=== PATIENT | female | born 1995 | race Caucasian/White ===

== ENCOUNTER → 2017-10-26 | Outpatient (CLI) | payer OTHER | LOC: HPND 11:56 | PROVIDERS: ATTEND Obstetrics & Gynecology | DX: Z36.3 Encounter for antenatal screening for malformations (principal) | CPT/HCPCS: 76805 ==

== ENCOUNTER 2018-03-12 08:21 | Inpatient (IN) ==
[2018-03-12] MEDS ORDERED: Ibuprofen 400 MG Tablet PO PRN (08:43)
[2018-03-12] MEDS ORDERED: Zolpidem Tartrate 5 MG Tablet PO PRN (08:43)
[2018-03-12] MEDS ORDERED: Naloxone Inj 0.4 MG/ML Vial IV.PUSH PRN (08:43)
[2018-03-12] MEDS ORDERED: Oxytocin 30 Units/500ml Premix 30 UNITS/500 ML BAG IV.CONT PRN (08:43)
[2018-03-12 09:20] LABS: Baso % (Auto) 0.2 % (0.0-2.0); Eos # (Auto) 0.1 th/mm3 (0.0-0.4); Eos % (Auto) 0.6 % (0.0-4.0); Hematocrit 38.4 % (35.0-46.0); Hemoglobin 13.1 gm/dL (11.6-15.3); Lymph # (Auto) 1.9 th/mm3 (1.0-4.8); Mean Corpuscular HGB Conc 34.2 % (32.0-36.0); Mean Corpuscular Hemoglobin 29.9 pg (27.0-34.0); Mean Corpuscular Volume 87.5 fL (80.0-100.0); Mean Platelet Volume 9.3 fL (7.0-11.0); Mono % (Auto) 7.5 % (0.0-8.0); Neut # (Auto) 10.7 th/mm3 (1.8-7.7); Neut % (Auto) 77.7 % (16.0-70.0); Platelet Count 191 th/mm3 (150-450); Red Blood Count 4.39 mil/mm3 (4.00-5.30); Red Cell Distribution Width 13.3 % (11.6-17.2); White Blood Count 13.8 th/mm3 (4.0-11.0)
--- NOTE | 2018-03-12 09:31 | P.OBDELI ---
Weeks Gestation: 38 Patient Started Active Labor: Yes Medical Induction of Labor: No Artificial Rupture of Membrane: No Anesthesia: None Episiotomy: none Vaginal Delivery: Normal Presentation: Occiput anterior Nuchal Cord: None Delayed Cord Clamping (45 sec): Yes Placenta: Manual removal, Uterus explored + Laceration: None Infant: Male
--- NOTE | 2018-03-12 09:38 | P.HPOB ---
History of Present Illness Primary Care Physician: No Primary Care Physician Chief Complaint: Labor History of Present Illness: 22-year-old at 38 weeks seen earlier today complaining of ruptured membranes. Return several hours later complaining of pelvic pressure urge to push. Weeks Gestation:: 38 Para: 1 : 2 - Inpatient Certification I certify that the inpatient services were ordered in accordance with Medicare regulations governing the order. This includes certification that hospital inpatient services are reasonable and necessary and in the case of services not specified as inpatient-only under 42 CFR 419.22(n), that they are appropriately provided as inpatient services in accordance to with the 2-midnight benchmark under 43 CFR 412.3(e) Estimated Total Length of Stay (Days): 2 Plans for Post Hospital Care: Home [facility] - History History Provided By: Patient - Medical History Medical History: Medical History (Last Updated 03/12/18 @ 01:51 by Shari Stewart MD) Asthma Depression - Tobacco History Smoking Status: Current every day smoker Cigarettes Per Day: 10 - Substance Use History Substance History: No History of Abuse - Travel History History of Recent Travel: No Recent Travel in the [place] Within the Last 8 Weeks: No Recent Travel Out of the Country Within the Last 8 Weeks: No Medications and Allergies Active Medications: Active Medications Acetaminophen (Tylenol) 650 mg PO Q4H PRN PRN Reason: PAIN SCALE 1 TO 2 Al Hydroxide/Mg Hydroxide (Milk Of Magnesia Liq) 30 ml PO Q12H PRN PRN Reason: Mild Constipation Benzocaine (Americaine 20% Top [place]) 1 spray TOPICAL Q4H PRN PRN Reason: For Perineum Discomfort Diphtheria/Pertussis/Tetanus Vacc (Boostrix Vaccine Inj) 0.5 ml IM .ONCE ONE Stop: 03/12/18 16:01 Oxytocin (Pitocin 30 Units/Ns 500 Ml Premix) 30 units in 500 mls @ 100 mls/hr IV.CONT UNSCH PRN PRN Reason: Heavy bleeding Ibuprofen (Motrin) 800 mg PO Q8H PRN PRN Reason: For Cramping Measles/Mumps/Rubella Vaccine Live (M-M-R Ii Vaccine Inj) 0.5 ml SQ .ONCE ONE Stop: 03/12/18 16:01 Naloxone HCl (Narcan Inj) 0.1 mg IV.PUSH Q2M PRN PRN Reason: for opiate reversal Ondansetron HCl (Zofran Odt) 4 mg PO Q6H PRN PRN Reason: NAUSEA OR VOMITING Senna/Docusate Sodium (Paula-Colace) 1 tab PO BID RACHELL Sennosides (Senokot) 17.2 mg PO Q12H PRN PRN Reason: Moderate Constipation Sodium Chloride (Ns Flush) 2 ml IV.FLUSH BID RACHELL Sodium Chloride (Ns Flush) 2 ml IV.FLUSH UNSCH PRN PRN Reason: FLUSH AFTER USING IV ACCESS Witch Janis/Glycerin (Tucks Pads) 1 applicatio RECTAL QID PRN PRN Reason: HEMORRHOIDS Zolpidem Tartrate (Ambien) 5 mg PO HS PRN PRN Reason: SLEEP Allergies Allergy/AdvReac Type Severity Reaction Status Date / Time No Known Allergies Allergy Verified 03/12/18 08:54 Home Medications Medication Instructions Recorded Confirmed Type No Known Home Medications 03/12/18 03/12/18 History Exam Vital signs: Vital Signs 03/12/18 09:04 Pulse Rate 74 Blood Pressure 110/79 Intake & Output 03/11/18 03/12/18 03/12/18 18:59 06:59 18:59 Weight 88.904 kg Other: Weight On Admission 88.904 kg Narrative: GENERAL: Well-nourished, well-developed patient. SKIN: Warm and dry. HEAD: Normocephalic and atraumatic. EYES: No scleral icterus. No injection or drainage. ENT: No nasal drainage noted. Mucous membranes pink. Airway patent. NECK: Supple, trachea midline. No JVD. CARDIOVASCULAR: Regular rate and rhythm without murmurs, gallops, or rubs. RESPIRATORY: Breath sounds equal bilaterally. No accessory muscle use. BREASTS: Bilateral exam showed no masses , no retractions, no nipple discharge. ABDOMEN/GI: Abdomen soft, non-tender, bowel sounds present, no rebound, no guarding Gravid to 38 weeks size Fundal Height: Consistent with gestational age GENITOURINARY: External Genitalia: intact and normal in appearance BUS glands: Unremarkable Cervix: Complete Dilatation: Complete Effacement: 100 Station: +2 +3 Presentation: Vertex Membranes: Ruptured Uterine Contractions: Palpates regular FHT's: Category: heart tones present EXTREMITIES: No cyanosis or edema. BACK: Nontender without obvious deformity. No CVA tenderness. NEUROLOGICAL: Awake and alert. Motor and sensory grossly within normal limits. Normal speech. Results - Labs CBC & Chem 7: 03/12/18 09:04 Labs: Laboratory Results - last 24 hr 03/12/18 09:04 WBC 13.8 H RBC 4.39 Hgb 13.1 Hct 38.4 MCV 87.5 MCH 29.9 MCHC 34.2 RDW 13.3 Plt Count 191 MPV 9.3 Neut % (Auto) 77.7 H Lymph % (Auto) 14.0 [place] % (Auto) 7.5 Eos % (Auto) 0.6 Baso % (Auto) 0.2 Neut # (Auto) 10.7 H Lymph # (Auto) 1.9 [place] # (Auto) 1.0 H Eos # (Auto) 0.1 Baso # (Auto) 0.0 WBC Differential . Differential Comment Auto diff final Caprini VTE Risk Assessment Caprini VTE Risk Assessment: No/Low Risk (score <= 1) Caprini Risk Assessment Model: Point Value = 1 Point Value = 2 Point Value = 3 Point Value = 5 Age 41-60 Minor surgery BMI > 25 kg/m2 Swollen legs Varicose veins or History of unexplained or recurrent spontaneous Oral contraceptives or hormone replacement Sepsis (< 1 month) Serious lung disease, including pneumonia (< 1 month) Abnormal pulmonary function Acute myocardial infarction Congestive heart failure (< 1 month) History of inflammatory bowel disease Medical patient at bed rest Age 61-74 Arthroscopic surgery Major open surgery (> 45 min) Laparoscopic surgery (> 45 min) Malignancy Confined to bed (> 72 hours) Immobilizing plaster cast Central venous access Age >= 75 History of VTE Family history of VTE Factor V Leiden Prothrombin [id number] Lupus anticoagulant Anticardiolipin antibodies Elevated serum homocysteine Heparin-induced thrombocytopenia Other congenital or acquired thrombophilia Stroke (< 1 month) Elective arthroplasty Hip, pelvis, or leg fracture Acute spinal cord injury (< 1 month) Prophylaxis Regimen: Total Risk Factor Score Risk Level Prophylaxis Regimen 0-1 Low Early ambulation 2 Moderate Order ONE of the following: *Sequential Compression Device (SCD) *Heparin 5000 units SQ BID 3-4 Higher Order ONE of the following medications: *Heparin 5000 units SQ TID *Enoxaparin/Lovenox 40 mg SQ daily (WT < 150 kg, CrCl > 30 mL/min) *Enoxaparin/Lovenox 30 mg SQ daily (WT < 150 kg, CrCl > 10-29 mL/min) *Enoxaparin/Lovenox 30 mg SQ BID (WT < 150 kg, CrCl > 30 mL/min) AND/OR *Sequential Compression Device (SCD) 5 or more Highest Order ONE of the following medications: *Heparin 5000 units SQ TID (Preferred with Epidurals) *Enoxaparin/Lovenox 40 mg SQ daily (WT < 150 kg, CrCl > 30 mL/min) *Enoxaparin/Lovenox 30 mg SQ daily (WT < 150 kg, CrCl > 10-29 mL/min) *Enoxaparin/Lovenox 30 mg SQ BID (WT < 150 kg, CrCl > 30 mL/min) AND *Sequential Compression Device (SCD) Assessment and Plan - Diagnosis (1) Precipitous delivery Code(s): O62.3 - Precipitate labor Status: Acute (2) Group beta Strep positive Code(s): B95.1 - Streptococcus, group B, as the cause of diseases classified elsewhere Status: Acute (3) 38 weeks gestation of Code(s): Z3A.38 - 38 weeks gestation of Status: Acute
[2018-03-12] MEDS: Acetaminophen 325 MG Tablet PO PRN ×3 (12:33→21:17)
[2018-03-12 13:22] LABS: Bilirubin,Urine Negative (Negative); Clarity,Urine Hazy (Clear); Color,Urine Yellow (Yellw/Straw); Glucose,Urine (UA) Negative (Negative); Leukocyte Esterase,Urine Trace (Negative); Mucus,Urine Few /lpf (Occasional); Nitrite,Urine Negative (Negative)
[2018-03-12 13:23] LABS: Amphetamine Urine With Conf Neg (Neg); Benzodiazepine Urine With Conf Neg (Neg)
[2018-03-12] MEDS: Senna/Docusate Sodium 8.6/50 MG Tablet PO SCH ×2 (14:06→21:18)
[2018-03-12] MEDS ORDERED: Diphtheria/Tetanus/Pertussis Vaccine Inj 0.5 ML Syringe IM ONE (16:00)
[2018-03-12] MEDS ORDERED: Measles/Mumps/Rubella Vaccine Inj 0.5 ML Vial SQ ONE (16:00)
[2018-03-12] MEDS: Witch Hazel 50%/Glyderin 12.5% 40 Pad Jar RECTAL PRN (21:18)
[2018-03-12] MEDS: Benzocaine 20% Top Spray 60 ML Can TOPICAL PRN (21:18)
--- NOTE | 2018-03-13 08:41 | P.PNOB ---
Subjective Post day: 1 Interval history: day # 1 after precipitous delivery with manual removal of the placenta. Afebrile with stable vitals overnight. Decreased lochia. Denies dysuria. No breast pain. Appetite good. No nausea or vomiting. Ambulating well. Denies calf pain or shortness of breath. Otherwise, she is doing well this morning and has no other complaints. Objective Vital Signs/I&O: Vital Signs 03/12/18 09:04 03/12/18 10:00 03/12/18 20:55 Temperature 98.6 F 97.8 F Pulse Rate 74 64 86 Respiratory Rate 14 18 Blood Pressure 110/79 111/71 117/67 03/13/18 07:30 Temperature 98.0 F Pulse Rate 71 Respiratory Rate 20 Blood Pressure 120/70 Intake & Output 03/12/18 03/13/18 03/13/18 18:59 06:59 18:59 Weight 88.904 kg Other: Weight On Admission 88.904 kg Result Diagrams: 03/12/18 09:04 Objective Remarks: General: Alert, well appearing, in no acute distress Skin: Warm and dry HEENT: Atraumatic. Moist mucus membranes Cardiac: Regular rate and rhythm without murmur Pulmonary: No increased work of breathing. Clear to auscultation bilaterally with good air movement. Abdominal: Non-tender. Uterus firm, non-tender and below the umbilicus Extremities: 2+ pedal pulses, no edema, no calf tenderness Medications and IVs: Active Medications Acetaminophen (Tylenol) 650 mg PO Q4H PRN PRN Reason: PAIN SCALE 1 TO 2 Last Admin: 03/12/18 21:17 Dose: 650 mg Al Hydroxide/Mg Hydroxide (Milk Of Magnesia Liq) 30 ml PO Q12H PRN PRN Reason: Mild Constipation Benzocaine (Americaine 20% Top [place]) 1 spray TOPICAL Q4H PRN PRN Reason: For Perineum Discomfort Last Admin: 03/12/18 21:18 Dose: 1 spray Oxytocin (Pitocin 30 Units/Ns 500 Ml Premix) 30 units in 500 mls @ 100 mls/hr IV.CONT UNSCH PRN PRN Reason: Heavy bleeding Ibuprofen (Motrin) 800 mg PO Q8H PRN PRN Reason: For Cramping Naloxone HCl (Narcan Inj) 0.1 mg IV.PUSH Q2M PRN PRN Reason: for opiate reversal Ondansetron HCl (Zofran Odt) 4 mg PO Q6H PRN PRN Reason: NAUSEA OR VOMITING Senna/Docusate Sodium (Paula-Colace) 1 tab PO BID [facility] Last Admin: 03/12/18 21:18 Dose: 1 tab Sennosides (Senokot) 17.2 mg PO Q12H PRN PRN Reason: Moderate Constipation Sodium Chloride (Ns Flush) 2 ml IV.FLUSH BID [facility] Last Admin: 03/12/18 22:36 Dose: Not Given Sodium Chloride (Ns Flush) 2 ml IV.FLUSH UNSCH PRN PRN Reason: FLUSH AFTER USING IV ACCESS Witch Janis/Glycerin (Tucks Pads) 1 applicatio RECTAL QID PRN PRN Reason: HEMORRHOIDS Last Admin: 03/12/18 21:18 Dose: 1 applicatio Zolpidem Tartrate (Ambien) 5 mg PO HS PRN PRN Reason: SLEEP Assessment and Plan - Plan 22 y/o female who is PPD# 1 s/p vaginal delivery (precipitous and manual removal of placenta) -Continue routine care. -Motrin /APAP as needed for pain. -Encouraged OOB. Advised pelvic rest for 6 wks. - control: patient expresses desire for tubal -Anticipate DC home tomorrow
[2018-03-13] MEDS: Senna/Docusate Sodium 8.6/50 MG Tablet PO SCH ×2 (09:00→21:45)
[2018-03-13 21:41] VITALS: RESP 18
[2018-03-13] MEDS: Benzocaine 20% Top Spray 60 ML Can TOPICAL PRN (21:45)
[2018-03-13] MEDS: Witch Hazel 50%/Glyderin 12.5% 40 Pad Jar RECTAL PRN (21:46)
[2018-03-13] MEDS: Acetaminophen 325 MG Tablet PO PRN (21:46)
[2018-03-14] MEDS: Acetaminophen 325 MG Tablet PO PRN ×2 (05:38→09:21)
[2018-03-14 08:17] VITALS: BP 116/67; PULSE 72; TEMP 97.9
--- NOTE | 2018-03-14 08:27 | P.PNOB ---
Subjective Post day: 2 Interval history: day #2 after precipitous delivery with manual removal of the placenta. Afebrile with stable vitals overnight. Decreased lochia. Denies dysuria. No breast pain. Eating and drinking well. No nausea or vomiting. Ambulating well. Denies calf pain or shortness of breath. She is doing well this morning and has no other complaints. Objective Vital Signs/I&O: Vital Signs 03/13/18 20:00 03/14/18 08:00 Temperature 98.5 F 97.9 F Pulse Rate 83 72 Respiratory Rate 18 18 Blood Pressure 141/80 H 116/67 Result Diagrams: 03/12/18 09:04 Objective Remarks: General: Alert, well appearing, in no acute distress Skin: Warm and dry HEENT: Atraumatic. Moist mucus membranes Cardiac: Regular rate and rhythm without murmur Pulmonary: No increased work of breathing. Clear to auscultation bilaterally with good air movement. Abdominal: Non-tender. Uterus firm, non-tender and below the umbilicus Extremities: 2+ pedal pulses, no edema, no calf tenderness Medications and IVs: Active Medications Acetaminophen (Tylenol) 650 mg PO Q4H PRN PRN Reason: PAIN SCALE 1 TO 2 Last Admin: 03/14/18 05:38 Dose: 650 mg Al Hydroxide/Mg Hydroxide (Milk Of [place]) 30 ml PO Q12H PRN PRN Reason: Mild Constipation Benzocaine (Americaine 20% Top [place]) 1 spray TOPICAL Q4H PRN PRN Reason: For Perineum Discomfort Last Admin: 03/13/18 21:45 Dose: 1 spray Oxytocin (Pitocin 30 Units/Ns 500 Ml Premix) 30 units in 500 mls @ 100 mls/hr IV.CONT UNSCH PRN PRN Reason: Heavy bleeding Ibuprofen (Motrin) 800 mg PO Q8H PRN PRN Reason: For Cramping Naloxone HCl (Narcan Inj) 0.1 mg IV.PUSH Q2M PRN PRN Reason: for opiate reversal Ondansetron HCl (Zofran Odt) 4 mg PO Q6H PRN PRN Reason: NAUSEA OR VOMITING Pramoxine HCl (Proctofoam) 1 applicatio RECTAL Q6H PRN PRN Reason: Rectal pain Senna/Docusate Sodium ([place]ula-Colace) 1 tab PO BID RACHELL Last Admin: 03/13/18 21:45 Dose: 1 tab Sennosides (Senokot) 17.2 mg PO Q12H PRN PRN Reason: Moderate Constipation Sodium Chloride (Ns Flush) 2 ml IV.FLUSH BID [facility] Last Admin: 03/13/18 21:47 Dose: Not Given Sodium Chloride (Ns Flush) 2 ml IV.FLUSH UNSCH PRN PRN Reason: FLUSH AFTER USING IV ACCESS Witch Janis/Glycerin (Tucks Pads) 1 applicatio RECTAL QID PRN PRN Reason: HEMORRHOIDS Last Admin: 03/13/18 21:46 Dose: 1 applicatio Zolpidem Tartrate (Ambien) 5 mg PO HS PRN PRN Reason: SLEEP Assessment and Plan - Plan 22 y/o female who is PPD# 2 s/p vaginal delivery (precipitous and manual removal of placenta) -Continue routine care. -Motrin /APAP as needed for pain. -Encouraged OOB. Advised pelvic rest for 6 wks. - control: patient expresses desire for tubal, paperwork signed -Anticipate DC home today
[2018-03-14] MEDS: Senna/Docusate Sodium 8.6/50 MG Tablet PO SCH (09:16)
== END 2018-03-14 11:43 | disposition home or self-care (01) ==
LOC: H2E 08:21 → H1EA 09:43
PROVIDERS: ADMIT Obstetrics & Gynecology; ATTEND Obstetrics & Gynecology